=== PATIENT | male | born 1995 | race Caucasian/White ===

== ENCOUNTER 2018-11-18 08:30 | Emergency (ER) | payer SELFPAY ==
[2018-11-18 08:31] VITALS: BP 135/66; PULSE 81; RESP 18; TEMP 36.6; O2SAT 98
--- NOTE | 2018-11-18 08:51 | RAD_ITS ---
STUDY: X-RAY - LEFT RADIUS AND ULNA REASON FOR EXAM: Male, 23 years old. Dogbite to the posterior surface of the forearm. TECHNIQUE: 2 view(s) of the forearm. COMPARISON: None. FINDINGS: There is no demonstrated soft tissue swelling. Normal visualized radius. Normal visualized ulna. RAD/Forearm 2 Views IMPRESSION: Normal x-ray examination of the radius and ulna. Electronically Signed: Karel Cardona, at 9:59 EDT , Service support ,
--- NOTE | 2018-11-18 08:53 | ED.VIS.GEN ---
History of Present Illness Chief Complaint: Bite Informant: Patient Onset: Yesterday Context: Sudden Onset Narrative: Is a 23-year-old male with no significant past medical history presenting with a dog bite to his left forearm. 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 He denies any other injuries. Patient cleaned the wound out himself and went home. This morning he noticed any increased swelling around the wound in his hand so he came to the emergency room to be evaluated further. The dog is up-to-date with all of its vaccinations including rabies. Patient denies any other complaints. He denies any numbness or tingling. He is not sure when his last tetanus was. He has not taken anything for pain. He denies any allergies. Patient is right-hand dominant. Past Medical History - Allergies and Home Meds Allergies/Adverse Reactions: Allergies No Known Allergies Allergy (Verified 11/18/18 08:33) Primary Care Physician: NOT,DEFINED [NON-STAFF] - Past Medical History: - - Left elbow fracture Surgical History: noncontributory Smoking Status: Never smoker Review of Systems All systems negative except as indicated General: Denies: Chills, Fever Musculoskeletal: Reports: - - Left forearm swelling and tenderness Skin: Reports: Wounds - Left forearm- dog bite Physical Exam Vital Signs/Narrative: Vital Signs Temp Pulse Resp BP Pulse Ox 11/18/18 08:31 98 F 81 18 135/66 H 98 Inital Vital Signs reviewed: Yes General: Well nourished, Well developed, No Acute Distress Head: Normocephalic, Atraumatic Eyes: Perrl, EOMI ENT: Moist mucous membranes, No rhinorrhea Neck: Supple, Nontender Cardiovascular: Regular rate, Regular rhythm, No murmurs Respiratory: No distress, CTA bilaterally, Chest nontender Abdomen: Soft, Nontender, Nondistended, Normal bowel sounds Back: Nontender, Normal Inspection Extremities: Tenderness - Left mid forearm, dorsal aspect, Edema - Left forearm and wrist Skin: Normal color, No rash, - - 1 cm V-shaped puncture wound of the dorsal aspect of the left midforearm, no surrounding erythema or warmth Neurological: Alert, Oriented x3, Cranial nerves II-XII grossly intact, Normal Strength, Normal Sensation Psychological: Normal affect, Normal Mood Diagnostic/Tx/Re-eval Diagnostic Data Forearm X-Ray 11/18/18 08:51 IMPRESSION: Normal x-ray examination of the radius and ulna. Electronically Signed: Karel Cardona, at 9:59 EDT , Service support , - Medical Decision Making Patient was evaluated for dog bite that occurred yesterday. He is not a candidate for primary closure secondary to timing as well as mechanism. Tetanus is updated. Patient be started on empiric antibiotics. He does not currently have signs of soft tissue infection. X-rays obtained to rule out any retained foreign body. Patient is given Motrin for swelling as well as pain control. Patient is counseled on need for close follow-up as this is at high risk for infection. He is started on Augmentin and first dose is given in the emergency room. Wound is cleansed thoroughly and bandaged in the emergency room. Patient states he does not need a work note. The dog is otherwise been behaving appropriately per reports and I do not think rabies prophylaxis is indicated at this time. Patient is counseled on signs and symptoms requiring return to the emergency room. Patient verbalizes agreement and understand this plan. Patient discharged home in stable and improved condition. ED Disposition - Plan for ED Patient: Disposition: Home or Assisted Living Diagnosis: Dog bite of left arm Instructions: Dog Bite Prescriptions: Amoxicillin/Potassium Clav [Augmentin 875-125 Tablet] 1 ea PO BID #20 tab Prescription Printed Ibuprofen [Motrin] 600 mg PO Q8H PRN PRN #20 tab PRN Reason: Pain Prescription Printed Referrals: NOT,DEFINED [NON-STAFF] - Heber Brown MD [NON-STAFF] - Additional Instructions: It is very important that you take your antibiotics. Return the emergency room if you develop worsening redness or pain. Please follow-up with primary care doctor in 2 to 3 days for wound recheck.
[2018-11-18] MEDS: Ibuprofen 600 MG Tablet PO (09:31)
[2018-11-18] MEDS: Amox/Clavulanate 875 MG Tablet PO (09:31)
[2018-11-18] MEDS: Diphth,Pertuss(Acell),Tet Vac 0.5 ML Vial IM (09:31)
== END 2018-11-18 10:24 | disposition home or self-care (01) ==
PROVIDERS: Emergency Provider Emergency Medicine
DX: S51.852A Open bite of left forearm, initial encounter (principal); Z23 Encounter for immunization; W54.0XXA Bitten by dog, initial encounter; Y93.89 Activity, other specified; Y92.007 Garden or yard of unspecified non-institutional (private) residence as the place of occurrence of the external cause; Y99.0 Civilian activity done for income or pay
CPT/HCPCS: 73090; 90471; 90715; 99283

== ENCOUNTER 2018-11-20 21:00 | Observation (INO) | payer SELFPAY ==
[2018-11-20 21:02] VITALS: BP 146/80; PULSE 77; RESP 16; TEMP 36.8; O2SAT 97; BMI 30.7
[2018-11-20 21:52] VITALS: BP 146/80; PULSE 77; RESP 16; TEMP 36.8; O2SAT 97
[2018-11-20] MEDS: 0.9% Normal Saline 1,000 ML 150 ML IV (21:52)
[2018-11-20 22:10] LABS: Absolute Lymphocyte Count 1.86 X10^3/uL (0.83-4.51); Absolute Neutrophil Count 4.8 X10^3/uL (2.0-7.7); Basophil# 0.05 X10^3/uL; Basophil% 0.6 % (0-1); Eosinophil# 0.23 X10^3/uL; Hematocrit 44.5 % (40-54); Lymphocyte # 1.86 X10^3/ul (4.0); Lymphocyte % 24.2 % (19-41); Mean Corp Hgb Conc 33.7 g/dL (32-36); Mean Corpuscular Hgb 30.1 pg (27.0-32.0); Mean Corpuscular Volume 89.2 fL (80-94); Mean Platelet Vol. 9.6 fl (6.2-12.0); Monocyte# 0.71 X10^3/uL; Monocyte% 9.2 % (0-10); NRBC Flagged by Analyzer 0 % (0-5); Neutrophil # 4.83 X10^3/uL (2.7-7.7); Neutrophil % 62.7 % (47-70); Platelet Count 253 K/mm3 (150-450); RBC Distribution Width CV 13.2 % (11.6-14.6); Red Blood Count 4.99 M/mm3 (4.6-6.2); White Blood Count 7.7 K/mm3 (4.4-11.0)
[2018-11-20 22:25] LABS: Anion Gap 4 (5-15); BUN 19 mg/dL (7-18); BUN/Creat Ratio 19.6 RATIO (10-20); Calcium,Total 9.1 mg/dL (8.5-10.1); Chloride 106 mmol/L (98-107); Creatinine, Serum 0.97 mg/dL (0.70-1.30); EST Glomerular Filtration Rate 100 mL/min (>60); Est Glom Filt Rate - Afr Amer 121 mL/min (>60); Estimated Creatinine Clearance 97.48 ml/min; Glucose 66 mg/dL (74-106); Potassium 3.8 mmol/L (3.5-5.1); Sodium Level 141 mmol/L (136-145)
--- NOTE | 2018-11-20 22:38 | ED.DCSUM_ITS ---
- ER Visit Summary Date of Service: 11/20/18 Chief Complaint: [Dog bite to left forearm] History of Present Illness: The patient is a 23 M [presents to the emergency department after sustaining a dog bite to the left forearm 3 days ago. 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 Patient came into the emergency department the following day and had x-rays of his forearm and was started on Augmentin. Despite the antibiotics patient arm continues to swell and the redness is expanded. From the puncture wound patient is able to express purulent debris. Eyes any fevers. Patient is right-hand dominant.] Physical Examination: [HEENT-PERRLA, EOMI. Cranial nerves II through XII grossly intact. TMs clear. Mucous membranes moist. No adenopathy. Cardiovascular-regular rate and rhythm without murmur or ectopy Lungs-clear to auscultation, chest wall stable without crepitus or subcu emphysema Abdomen-normoactive bowel sounds, soft, nontender, no rebound or rigidity, no peritoneal signs. Extremities-intact ?4, normal range of motion, normal pulses. Left forearm- patient has a more puncture wound over the dorsum of the mid forearm with some purulent debris noted. Patient has extending erythema to the elbow and to the dorsum of the hand. Patient has pain with range of motion. He has normal range of motion in all the digits. Patient neurovascular intact.] Test Results: [CBC with differential obtained was normal. Chemistries normal.] Emergency Department Course and Treatment: [Patient was started on Zosyn 4.5 g IV.] Treatment Plan: [Admit for IV antibiotics] Disposition: [Admit] Impression: [Dog bite with cellulitis-failed outpatient therapy] This note was generated with [employer] dictation software. It may contain incorrect words, spelling, and punctuation that were not noted in review of the chart prior to signing ED Disposition - Plan for ED Patient: Referrals: Care Physician,No Primary [Primary Care Provider] -
[2018-11-20 22:47] VITALS: BP 125/69; PULSE 71; RESP 16; TEMP 36.6; O2SAT 71; O2SAT 97
--- NOTE | 2018-11-20 23:05 | PCM.HP.STD ---
Problem List (1) Dog bite of arm Status: Acute History of Present Illness Date of Admission: 11/20/18 Chief Complaint: Left arm dog bite The patient is a 23 year old M with no significant past medical history who presents with outpatient failure of antibiotic therapy for a dog bite to his left forearm. He states that 3 days ago a customer's dog bit him on the left arm and he presented to the ER where x-rays were obtained which were unremarkable. He was started on Augmentin and discharged home. He states that he is taking his antibiotics appropriately and has had worsening swelling as well as purulent drainage from his wound while at home, it has stopped draining while here in the hospital. He has not had any fevers at home but feels that his swelling in his redness have worsened. Past Medical History Allergies No Known Allergies Allergy (Verified 11/20/18 21:05) Home Medications: Ambulatory Orders Medication Instructions Recorded Ibuprofen [Motrin] 600 mg PO Q8H PRN PRN #20 tab 11/18/18 Amoxicillin/Potassium Clav 1 ea PO BID 11/21/18 [Augmentin 875-125 Tablet] Surgical History: noncontributory Smoking Status: Current every day smoker Tobacco Use: Vapor Alcohol: None Drugs: None Review of Systems Constitutional: Denies: Chills, Fever, Weight Change HEENT: Denies: Head Aches, Sinus Congestion, Sinus Drainage Cardiovascular: Denies: Chest Pain, Palpitations Respiratory: Denies: Cough, Shortness of breath at rest, Sputum production Gastrointestinal: Denies: Abdominal Pain, Nausea, Vomiting Genitourinary: Denies: Dysuria Musculoskeletal: Reports: Arm Pain. Denies: Joint Pain, Joint Tenderness Skin: Reports: Wounds - Dog bite to the left arm. Denies: Rash Neurological: Denies: Numbness, Tingling, Focal weakness Psychiatric: Denies: Anxiety, Depression Hematologic/ Lymphatic: Denies: Easy Bruising, Easy Bleeding VTE Information - Inpt Only VTE Present on Admission: No Patient Problems: Active and Suspected Problems Dog bite of arm (Acute) - Physical Exam General: Alert, Oriented x3, Cooperative, No apparent distress HEENT: Atraumatic, PERRLA, EOMI, Normocephalic Oral: Moist Mucosa Neck: Supple, No JVD Lungs: Clear to auscultation, Normal air movement, No rhonchi, No wheeze, No rales Cardiovascular: Regular rate, Regular Rhythm, Normal S1, Normal S2, No murmurs Abdomen: Soft, Non Tender, Non-Distended, No Hepato-splenomegaly Extremities: No edema, Capillary Refill Less than 3 Seconds Skin: Ulcer/ Wound - Puncture wound to the left forearm with purulent drainage Neurological: Neuro grossly intact, Sensory exam intact to light touch and pain Psych/Mental Status: Normal Affect, Appropriate Vital Signs Temp Pulse Resp BP Pulse Ox 97.8 F 71 16 125/69 H 97 11/20/18 22:47 11/20/18 22:47 11/20/18 22:47 11/20/18 22:47 11/20/18 22:47 Oxygen Delivery Method Room Air Weight: 179 lb 3.773 oz Body Mass Index (BMI) 30.7 Intake and Output for Last 24 Hours 11/18/18 11/19/18 11/20/18 23:59 23:59 23:59 Intake Total 100 / 100 Balance 100 / 100 Laboratory Tests Past 24 Hrs 11/20/18 11/20/18 21:50 21:50 WBC 7.7 RBC 4.99 Hgb 15.0 Hct 44.5 MCV 89.2 MCH 30.1 MCHC 33.7 RDW Std Deviation 43.0 RDW Coeff of Shalom 13.2 Plt Count 253 MPV 9.6 Immature Gran % (Auto) 0.300 Neut % (Auto) 62.7 Lymph % (Auto) 24.2 Schuyler % (Auto) 9.2 Eos % (Auto) 3.0 Baso % (Auto) 0.6 Absolute Neuts (auto) 4.8 Absolute Lymphs (auto) 1.86 Nucleated RBC % 0 Sodium 141 Potassium 3.8 Chloride 106 Carbon Dioxide 31.0 Anion Gap 4 L BUN 19 H Creatinine 0.97 Estim Creat Clear Calc 97.48 Est GFR (MDRD) Af Amer 121 Est GFR (MDRD) Non-Af 100 BUN/Creatinine Ratio 19.6 Glucose 66 L Calcium 9.1 Assessment/Plan All Active Problems Dog bite of arm (Acute) 1. Cellulitis to the left forearm from a dog bite -We will consult wound care -We will continue with IV Unasyn, he states that he is taking his antibiotics appropriately, but is only taken 2 pills -Anticipate that he will be able to go home tomorrow -Has no leukocytosis or fevers DVT: Ambulation Code Visit Inpatient E&M: 69013 Init Hosp L2
[2018-11-20 23:26] VITALS: BMI 30.9; BMI 31.0
[2018-11-20 23:27] VITALS: BP 131/67; PULSE 75; RESP 16; TEMP 36.5; O2SAT 98
[2018-11-21] MEDS: 0.9% NaCl IVPB Med Flush (250 mL) 15 ML IV (05:22)
[2018-11-21 05:23] VITALS: BP 116/53; PULSE 60; RESP 16; TEMP 36.9; O2SAT 96
[2018-11-21 06:19] LABS: Absolute Lymphocyte Count 1.53 X10^3/uL (0.83-4.51); Absolute Neutrophil Count 3.5 X10^3/uL (2.0-7.7); Basophil# 0.04 X10^3/uL; Basophil% 0.7 % (0-1); Eosinophil# 0.25 X10^3/uL; Eosinophils% 4.2 % (0-5); Hematocrit 41.5 % (40-54); Hemoglobin 13.7 g/dL (13.0-16.5); Lymphocyte # 1.53 X10^3/ul (4.0); Lymphocyte % 25.7 % (19-41); Mean Corpuscular Hgb 29.3 pg (27.0-32.0); Mean Corpuscular Volume 88.7 fL (80-94); Mean Platelet Vol. 9.8 fl (6.2-12.0); Monocyte# 0.64 X10^3/uL; Monocyte% 10.7 % (0-10); NRBC Flagged by Analyzer 0 % (0-5); Neutrophil # 3.48 X10^3/uL (2.7-7.7); Neutrophil % 58.4 % (47-70); Platelet Count 231 K/mm3 (150-450); RBC Distribution Width CV 13.3 % (11.6-14.6); RBC Distribution Width SD 43.2 fl (35.1-43.9); Red Blood Count 4.68 M/mm3 (4.6-6.2)
[2018-11-21 06:41] LABS: Anion Gap 7 (5-15); BUN 18 mg/dL (7-18); BUN/Creat Ratio 21.6 RATIO (10-20); Calcium,Total 8.5 mg/dL (8.5-10.1); Chloride 109 mmol/L (98-107); Creatinine, Serum 0.83 mg/dL (0.70-1.30); EST Glomerular Filtration Rate 120 mL/min (>60); Est Glom Filt Rate - Afr Amer 145 mL/min (>60); Estimated Creatinine Clearance 113.92 ml/min; Glucose 87 mg/dL (74-106); Potassium 3.8 mmol/L (3.5-5.1); Sodium Level 144 mmol/L (136-145)
[2018-11-21 07:00] VITALS: PULSE 70; RESP 14
[2018-11-21 08:12] VITALS: BP 108/60; PULSE 69; PULSE 70; RESP 14; TEMP 36.4; O2SAT 97
--- NOTE | 2018-11-21 08:17 | NURSING ---
wound photo: left forearm
--- NOTE | 2018-11-21 09:35 | CASEMGMT ---
Social Work Note Pt is listed as self-pay. PFS saw pt and per PFS notes, pt's dog bite happened at a client's home and pt is going to put it through their home owners insurance. PFS explained that [facility] doesn't bill third libertarian insurance and pt will still be listed as self-pay and get a bill and that pt will be responsible for bill. PFS explained that home owners insurance tend to take a while and pt will need to set up a payment plan. Pt told PFS that he was not going to set up a payment plan and refused to fill out any financial assistance. Brit Krishnan [employer] SURVEYOR, [employer]
[2018-11-21 10:02] LABS: M R Staph aureus DNA By PCR Negative (Negative); Probe Check PASS; Specimen Processing Control PASS; Staph aureus DNA By PCR NEGATIVE (Negative)
--- NOTE | 2018-11-21 12:31 | DCINST_ITS ---
- Discharge Diagnoses Current Active Problems: Current Active and Chronic Problems Dog bite of arm (Acute) You will use the following diet at home:: No restrictions Your food should be the consistency of: Regular Your liquids should be the consistency of: Regular/Thin Discharge Activity: Return to Normal Activity Weight Bearing Status: Full weight bearing Allergies/Adverse Reactions: Allergies No Known Allergies Allergy (Verified 11/20/18 21:05) Medications to take at Discharge Ibuprofen [Motrin] 600 mg PO Q8H PRN PRN #20 tab 11/18/18 Amoxicillin/Potassium Clav [Augmentin 875-125 Tablet] 1 ea PO BID 11/21/18 Primary Care Physician: Care Physician,No Primary [Primary Care Provider] - Please follow up with your Primary Care Physician in: in one week Test Results: Test results from this visit will be discussed in further detail at your follow- up appointment, if applicable.
[2018-11-21 12:34] VITALS: PULSE 68; O2SAT 97
[2018-11-21 13:30] VITALS: BP 122/69; PULSE 68; RESP 14; TEMP 36.6; O2SAT 97
--- NOTE | 2018-11-22 08:45 | DS.PCM_ITS ---
Discharge Date and Diagnosis Date of Admission: 11/20/18 Date of Discharge: 11/21/18 - Primary Discharge Diagnosis #1 cellulitis of the left forearm secondary to dog bite-failed outpatient treatment Hospital Course and Treatment Consultations 11/21/18 01:43 Consult: Onc/Wound/buffer nickel Routine Comment: Operations: None Procedures: None Summary of Care Provided: The patient is a 23 year old M seen in the emergency room at [facility] with chief complaint of pain and redness of his left forearm secondary to a dog bite 3 days prior. Patient was seen in the emergency room 48 hours previously and had x-rays of his forearm and was started on Augmentin. Patient states that he continued to have swelling and redness in his left forearm and he came to the emergency room for evaluation. On examination in the emergency room, some purulent drainage was noted from the bite salma on the left forearm, CBC was obtained and was normal, blood chemistries were normal. Patient was given IV Zosyn and admitted to [place] [address] and IV Unasyn was continued. On 11/21/2018, patient was seen and examined: On examination he appeared in good health and spirits. Vital signs as documented. Skin warm and dry and without overt rashes. Neck without JVD. Lungs clear. Heart exam notable for regular rhythm, normal sounds and absence of murmurs, rubs or gallops. Abdomen unremarkable and without evidence of organomegaly, masses, or abdominal aortic enlargement. Extremities-there is some redness of the midportion of the left forearm noted near a puncture wound that is approximately half centimeter in diameter, no purulent material was noted at the time my examination, the area is slightly tender to palpation.. Neuro: Cranial nerves II through XII are grossly intact, no focal motor deficits were noted, sensation to light touch and pinprick intact. Psych: Patient is alert and oriented x3, he does not appear anxious or depressed On 11/21/2018, patient was seen and examined and felt to be in stable condition for discharge home - Physical Exam Vital Signs Temp Pulse Resp BP Pulse Ox 97.9 F 68 14 122/69 H 97 11/21/18 13:30 11/21/18 13:30 11/21/18 13:30 11/21/18 13:30 11/21/18 13:30 Oxygen Delivery Method Room Air Weight: 81.9 kg Body Mass Index (BMI) 30.9 Intake and Output for Last 24 Hours 11/20/18 11/21/18 11/22/18 23:59 23:59 23:59 Intake Total 100 / 100 1715.75 / 1715.75 Balance 100 / 100 1715.75 / 1715.75 Microbiology Past 72 Hours 11/21/18 08:00 Gram Stain - Final Bite, Dog Laboratory Tests Past 24 Hrs 11/21/18 08:00 S.aureus Protein A PCR NEGATIVE MRSA (PCR) Negative Discharge Activity: Return to Normal Activity Weight Bearing Status: Full weight bearing Home Medications: Medications to take at Discharge Ibuprofen [Motrin] 600 mg PO Q8H PRN PRN #20 tab 11/18/18 Amoxicillin/Potassium Clav [Augmentin 875-125 Tablet] 1 ea PO BID 11/21/18 Primary Care Physician: Care Physician,No Primary [Primary Care Provider] - Please follow up with your Primary Care Physician in: in one week Disposition: Home Minutes spent on discharge:: 32 Patient Condition:: Stable Medical Necessity - Tobacco Use Smoking Status: Never smoker Tobacco Use: Vapor Meaningful Use Info Meaningful Use Diagnoses (Choose all that apply): None applicable Code Visit OBSV E&M: 53522 Observation care discharge
== END 2018-11-21 14:15 | disposition home or self-care (01) ==
LOC: ED 21:52 → MS3 11-21 05:48
PROVIDERS: Admitting Provider Family Medicine; Emergency Provider Emergency Medicine; Visit Provider Internal Medicine
DX: L03.114 Cellulitis of left upper limb (principal); S51.832A Puncture wound without foreign body of left forearm, initial encounter; W54.0XXA Bitten by dog, initial encounter; Y93.9 Activity, unspecified; Y92.9 Unspecified place or not applicable; F17.290 Nicotine dependence, other tobacco product, uncomplicated
CPT/HCPCS: 36415; 80048; 85025; 87070; 87077; 87186; 87205; 87640; 96361; 96365; 96366; 96367; 99218; 99284; J7030; J7050; A4216; G0378; J0295